=== PATIENT | male | born 1975 | race Caucasian/White ===

== ENCOUNTER 2020-10-14 08:07 | Outpatient (REF) | payer OTHER, SELFPAY ==
[2020-10-14 10:16] LABS: MANUAL DIFF FLAG NO
[2020-10-14 10:22] LABS: Basophils Percent Auto 0.5 % (0-2); Eosinophils Absolute Auto 0.1 X10*3/uL (0.0-0.4); Eosinophils Percent Auto 1.7 % (0-4); Hematocrit 41.9 % (42-52); Hemoglobin 14.5 g/dl (14.0-18.0); Imm Gran Abs Auto 0.04 X10*3/uL (0.00-0.03); Imm Gran Pct Auto 0.6 % (0.0-0.4); Mean Corpuscular HGB Conc 34.6 g/dl (31.0-36.0); Mean Corpuscular Volume 86.6 fL (80-98); Mean Platelet Volume 11.7 fL (9.4-12.4); Monocytes Absolute Auto 0.6 X10*3/uL (0.1-1.2); Neutrophils Absolute Auto 3.8 X10*3/uL (2.0-8.3); Neutrophils Percent Auto 58.2 % (45-73); Platelet Count 205 X10*3/uL (160-400); Red Blood Count 4.84 X10*6/uL (4.60-5.80); Red Cell Distribution Width 12.9 % (11.0-16.0); White Blood Count 6.6 X10*3/uL (4.8-10.8)
[2020-10-14 10:51] LABS: Alanine Aminotransferase 53 U/L (0-40); Albumin Level 4.6 g/dL (3.5-5.0); Alkaline Phosphatase 76 U/L (39-117); Anion Gap 19 (12-20); Aspartate Amino Transferase 29 U/L (5-37); Bilirubin Total 0.2 mg/dL (0.0-1.0); Blood Urea Nitrogen 17 mg/dL (9-16); Calcium 9.4 mg/dL (8.4-10.2); Carbon Dioxide 21 mmol/L (22-29); Chloride 104 mmol/L (96-108); Cholesterol 263 mg/dL; Estimated Glomerular Filt Rate > 60; Glucose Fasting 113 mg/dL (60-99); HDL Cholesterol 49 mg/dL; LDL Cholesterol Calculated 186 mg/dl; Potassium 4.5 mmol/L (3.3-5.1); Sodium 139 mmol/L (135-145); Total Protein 7.4 g/dL (6.5-8.0); Triglycerides 140 mg/dL
[2020-10-14 11:06] LABS: Thyroid Stimulating Hormone 0.65 uIU/mL (0.32-4.0)
== END 2020-10-14 08:08 | disposition home or self-care (01) ==
LOC: HO.10HDL 08:07
PROVIDERS: PCP Internal Medicine; Visit Provider Internal Medicine
DX: I10 Essential (primary) hypertension (principal); E78.00 Pure hypercholesterolemia, unspecified
CPT/HCPCS: 36415; 80053; 80061; 84443; 85025

== ENCOUNTER 2024-04-25 13:48 | Outpatient (AMB) | payer OTHER, SELFPAY ==
--- NOTE | 2024-04-25 14:36 | MHC.PC.OV ---
Vital Signs 04/25/24 14:39 Height 5 ft 5.75 in Weight 184 lb BMI 29.9 BP 160/78 H Blood Pressure Location Rt brachial Pulse 79 Pulse Source Pulse Oximeter Temp 97.2 F Pulse Oximetry (%) 98 Intake Visit Reasons: 3 month f/u Intake Note: no other issues othervthan not taking his meds like he should Allergies morphine Allergy (Unknown, Verified 04/25/24 14:37) from IV- shaking and veins turning black No Known Allergies Allergy (Unknown, Unverified 11/16/19 16:19) [facility] Medical History (Updated 04/25/24 @ 14:58 by Stuart Serrano MD) Hypercholesterolemia Essential hypertension Physical exam (Primary Care) Vital Signs: Last Vital Signs Temp 97.2 F 04/25/24 14:39 Pulse 79 04/25/24 14:39 BP 160/78 H 04/25/24 14:39 Pulse Ox 98 04/25/24 14:39 BMI result Body Mass Index 29.9 Coding Level of Care Code New Pt Level 4 (60690) Complex EM visit Add On G2211 Diagnoses Essential hypertension I10 Hypercholesterolemia E78.00 Assessment & Plan Assessment & Plan (1) Essential hypertension: Code(s): I10 - Essential (primary) hypertension Category: Medical Plan: BP in range. Continue medications at same dosage. BW has been ordered. Will call with results (2) Hypercholesterolemia: Code(s): E78.00 - Pure hypercholesterolemia, unspecified Category: Medical Plan: Continue statins at same dosage Plan History of Present Illness The patient is a 48-year-old male presenting with concerns about medication adherence and hip pain. 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 Despite missing some doses, he takes his hypertension medication most of the time, usually in the evening after work. His history of Hyperlipidemia is also acknowledged, and he follows a similar pattern of medication adherence. The patient experiences intermittent hip pain, which he mentioned to have flared up recently. He previously consulted a specialist in [place], who did not find any structural abnormalities. The pain can impede his ability to walk at times. Despite these issues, he denies any current health concerns and maintains a busy lifestyle, working up to 70 hours a week. 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 - Work Schedule: Approximately 60-70 hours per week. - Family: Is responsible for taking his children to school in the mornings. - Exercise: Has not been to the gym in two months but usually maintains a good exercise regimen. - Vision: Reports using reading glasses but no concerns with night driving. Review of Systems - Eyes: Reports needing reading glasses. - Musculoskeletal: Reports intermittent hip pain affecting ambulation. Physical Exam General: Appearance normal, both eyes and all related structures Nutritional Appearance: Well nourished Orientation/consciousness: Patient oriented x3 Limitations: Sometimes has trouble walking due to hip problems Head: Normal to inspection Neck: Normal visual inspection Chest: Normal palpation of entire chest wall Respiratory: Normal respiratory effort Neurology: Patient oriented x3 Results - Labs: Cologuard test was negative. Plan - Review current medication regimen for Essential Hypertension and Hyperlipidemia and encourage consistent adherence. - Patient advised to undergo fasting blood work to assess lipid levels. - Consider non-pharmacological interventions for hip pain, and encourage resumption of regular exercise as tolerated. - Discussed the importance of consistent medication intake, preferably in the morning if it could aid adherence. - No immediate need for a colonoscopy, given the recent negative Cologuard result. Patient was informed and verbally consented to the use of an ambient scribe for clinic note documentation during this visit. Discussion Notes During the visit, I discussed the importance of adhering to his current medication regimen for hypertension and hyperlipidemia, particularly emphasizing taking medications in the morning if this helps his routine. We spoke about the need for periodic monitoring of his blood pressure and lipid levels through fasting blood work, which he can complete at a facility within the [facility]. Given the negative Cologuard test, we agreed that immediate colonoscopy is not necessary. For his hip pain, I suggested returning to regular physical activity and exercises that do not exacerbate his pain. We agreed on a six-month follow-up to reassess these issues, and no refill was necessary this visit. Patient Instructions - Schedule and complete fasting blood work after midnight with no food intake. - Aim to resume a regular exercise routine within comfort limits. - Continue current medications and prioritize taking them in the morning. - Follow-up appointment planned for six months.
[2024-04-25 14:39] VITALS: BP 160/78; PULSE 79; TEMP 36.2; O2SAT 98; BMI 29.9
--- OUTSIDE RECORDS SUMMARY | 2024-04-25 17:09 | XMS_ITS ---
Author Organization Yan Zamora DO, [facility] Address [address], [place] [id number] Care Team Providers Care Acute Coordinator Name Role Phone Yan Zamora Primary Care Provider MEDICATIONS Medication SIG (Take, Route, Frequency, Duration) Notes Start Date End Date Status Rosuvastatin Calcium 20 MG 1 tablet Oral ly Once a day 12/01/2022 Active LORazepam 1 MG 1 tablet at bedtime as needed Orally Once a day for 30 days 08/24/2023 Active Albuterol Sulfate HFA 108 (90 Base) MCG/ACT 1 puff as needed Inhalation every 4 hrs for 30 days Active Tadalafil 20 MG 1 tablet as needed O rally Once a day for 30 days Active Metoprolol Succinate ER 50 MG 1 tablet Orally Once a day 05/14/2015 Active amLODIPine Besy-Benazepril HCl 10-40 MG 1 capsule Orally Once a day Active Encounters Encounter Location Date Provider Diagnosis Yan Zamora DO, FACP [address] [place] [phone] 02/09/2024 Yan Zamora PLAN OF TREATMENT No Information
--- OUTSIDE RECORDS SUMMARY | 2024-04-25 17:09 | XMS_ITS | Patient Health Record ---
Author Organization Yan Zamora DO, [facility] Address [address] [place], [place] [id number] Care Team Providers Care Boilermaker Ship Name Role Phone Yan Zamora Primary Care Provider [phone] ALLERGIES Allergen (clinical drug ingredient) Drug/Non Drug Allergy documented on EMR Reaction Allergy Type Onset Date Status morphine Morphine Sulfate agitation Drug Allergy Active RESULTS Component Value Reference Range Notes SRIDHAR Reviewed date:10/01/2023 11:34:05 AM Interpretation:Negative Performing Lab: Notes/Report: Negative Result REASON FOR REFERRAL No Information MEDICATIONS Medication SIG (Take, Route, Frequency, Duration) [...] Once a day for 30 days Active amLODIPine Besy-Benazepril HCl 10-40 MG 1 capsule Orally Once a day Active Metoprolol Succinate ER 50 MG 1 tablet Orally Once a day 05/14/2015 Active IMMUNIZATIONS Vaccine Route Administration Date Status Comme nts Influenza IM Intramuscular 03/20/2014 Administered Influenza Quad IM Intramuscular 05/01/2015 Administered COVID-19 Pfizer BioNTech Unknown 05/30/2020 Administere d COVID-19 Pfizer BioNTech Unknown 06/22/2020 Administere d SOCIAL HISTORY Tobacco Use: Social History Observation Description Date Details (start date - stop date) Never Smoker NA - NA Sex Assigned At : Social History Observation Description Sex Assigned At Unknown Tobacco Use/Smoking Question Answer Notes Patient is a nonsmoker Additional Findings: Tobacco Non-User Cu rrent non-smoker, currently using no form of tobacco Alcohol Screen Question Answer Notes Did you have a drink contain ing alcohol in the past year? Yes How often did you have a dri nk containing alcohol in the past year? 2 to 4 times a month (2 points) How many drinks did you have on a typical day when you were drinking in the past year? 3 or 4 drinks (1 point) How often did you have 6 or more drinks on one occasion in the past year? Never (0 point) Points 3 Interpretation Negative PROBLEMS Problem Type ICD Code Onset Dates Problem Status W/U Status Risk SNOMED Code Notes Problem Anxiety (F41.9) Active confirmed 330370 02 Problem Essential hypertensi on (I10) Active confirmed 95589463 Problem Erectile dysfunction , unspecified erectile dysfunction type (N52.9) Active confirmed 493050150 Problem Renal lithiasis (N20.0) Active confirmed 36893976 Problem Hypercholesterolemia (E78.00) Active confirmed 56250400 VITAL SIGNS Blood pressure diastolic 94 mm Hg 08/24/2023 Height 66.75 in 08/24/2023 Blood pressure systolic 162 mm Hg 08/24/2023 Weight 184 lbs 08/24/2023 BMI 29.03 kg/m2 08/24/2023 Encounters Encounter Location Date Provider Diagnosis Yan Zamora DO, [address] [id number] 05/04/2023 Yan Zamora DO, [address] [id number] 08/24/2023 Yan Zamora Encounter for genera l adult medical examination without abnormal findings Z00.00 ; Essential hypertension I10 ; Hypercholesterolemia E78.00 ; Anxiety F41.9 and Erectile dysfunction, unspecified erectile dysfunction type N52.9 Yan Zamora DO, [address] [id number] 11/23/2023 Yan Zamora DO, [address] [id number] 02/09/2024 Yan Zamora DO, [address] [id number] 06/28/2023 Yan Zamora ASSESSMENTS Encounter Date Diagnosis Assessment Notes Treatment Notes Treatment Clinical Notes 08/24/2023 Encounter for genera l adult medical examination without abnormal findings (ICD-10 - Z00.00) 08/24/2023 Essential hypertensi on (ICD-10 - I10) Low salt diet 08/24/2023 Hypercholesterolemia (ICD-10 - E78.00) Low cholesterol diet; written guidelines provided 08/24/2023 Anxiety (ICD-10 - F41.9) 08/24/2023 Erectile dysfunction , unspecified erectile dysfunction type (ICD-10 - N52.9) PLAN OF TREATMENT Pending Test Test Name Order Date CBC w DIFF 08/24/2023 Liver Panel 08/24/2023 Basic Metabolic Panel Fasting 08/24/2023 Lipid Panel 08/24/2023 PSA,Total (Free>4and<10) 08/24/2023 TSH reflex Free T4 08/24/2023 Insurance Providers Payer Name Payer Address Payer Phone Subscriber Number Group Number Insured Name Patient Relationship to Insured Coverage Start Date Coverage End Date [facility] [address] [facility] [place] [place] [id number] Ladnon Biggs Self - patient is the insured MEDICAL (GENERAL) HISTORY Medical History History ICD Code hypertension hypercholesterolemia appendicitis s/p appendectomy prostatitis Surgical History Surgery Date(Month/Year) appendectomy
--- OUTSIDE RECORDS SUMMARY | 2024-04-25 17:09 | XMS_ITS ---
Author Organization Yan Zamora DO, FACP Address [address] [place], [place] [id number] Care Team Providers Care Rx Specialist Name Role Phone Yan Zamora Primary Care Provider REASON FOR VISIT 3 month f/u Encounters Encounter Location Date Provider Diagnosis Yan Zamora DO, FACP [address] [place] [phone] 11/23/2023 Yan Zamora PLAN OF TREATMENT No Information
--- OUTSIDE RECORDS SUMMARY | 2024-04-25 17:09 | XMS_ITS ---
Author Organization Yan Zamora DO, [facility] Address [address] [place], [place] [phone] Care Team Providers Care Snap Attacher Name Role Phone Yan Zamora Primary Care Provider ALLERGIES Allergen (clinical drug ingredient) Drug/Non Drug Allergy documented on EMR Reaction Allergy Type Onset Date Status morphine Morphine Sulfate agitation Drug Allergy Active RESULTS Component Value Reference Range Notes SRIDHAR Reviewed date:10/01/2023 11:34:05 AM Interpretation:Negative Performing Lab: Notes/Report: Negative Result REASON FOR VISIT annual visit, Follow up hypertension, hypercholesterolemia MEDICATIONS Medication SIG (Take, Route, Frequency, Duration) Notes Start Date End Date Status Albuterol Sulfate HFA 108 (90 Base) MCG/ACT 1 puff as needed Inhalation every 4 hrs Active LORazepam 1 MG 1 tablet at bedtime as needed Orally Once a day for 30 days 08/24/2023 Active Tadalafil 20 MG 1 tablet as needed O rally Once a day Active amLODIPine Besy-Benazepril HCl 10-40 MG 1 capsule Orally Once a day Active Rosuvastatin Calcium 20 MG 1 tablet Oral ly Once a day 12/01/2022 Active Metoprolol Succinate ER 50 MG 1 tablet Orally Once a day 05/14/2015 Active SOCIAL HISTORY Tobacco Use: Social History Observation [...] Never (0 point) Points 3 Interpretation Negative VITAL SIGNS BMI 29.03 kg/m2 08/24/2023 Blood pressure systolic 162 mm Hg 08/24/19 24 Blood pressure diastolic 94 mm Hg 024 Height 66.75 in 08/24/2023 Weight 184 lbs 08/24/2023 Encounters Encounter Location Date Provider Diagnosis Yan Zamora DO, [address] [id number] 08/24/2023 Yan Zamora Encounter for genera l adult medical examination without abnormal findings Z00.00 ; Essential hypertension I10 ; Hypercholesterolemia E78.00 ; Anxiety F41.9 and Erectile dysfunction, unspecified erectile dysfunction type N52.9 ASSESSMENTS Encounter Date Diagnosis Assessment Notes Treatment [...] type (ICD-10 - N52.9) PLAN OF TREATMENT Medication Medication Name Sig Start Date Stop Date Notes Albuterol Sulfate HFA 108 (9 0 Base) MCG/ACT 1 puff as needed Inhalation every 4 hrs LORazepam 1 MG 1 tablet at bedtime as needed Orally Once a day for 30 days 08/24/2023 Tadalafil 20 MG 1 tablet as needed O rally Once a day amLODIPine Besy-Benazepril H Cl 10-40 MG 1 capsule Orally Once a day Rosuvastatin Calcium 20 MG 1 tablet Orally Once a day 04/2022 Metoprolol Succinate ER 50 MG 1 tablet Orally Once a day 0 05/14/2015 Treatment Notes Assessment Notes Essential hypertension Low salt diet Hypercholesterolemia Low cholesterol t; written guidelines provided Pending Test Test Name Order Date CBC w DIFF 08/24/2023 Liver Panel 08/24/2023 Basic Metabolic Panel Fasting 08/24/2023 Lipid Panel 08/24/2023 PSA,Total (Free>4and<10) 08/24/2023 TSH reflex Free T4 08/24/2023 Next Appt Details Follow Up: 3 Months, Reason: follow up visit,review lab work Progress Notes * Examination Category Sub-Category Detail Notes General Examination GENERAL APPEARANCE: well dev eloped, well nourished, in no acute distress HEAD: normocephalic, atrau matic EYES: sclera non-icteric NECK/THYROID: neck supple, full ra nge of motion, no cervical lymphadenopathy, thyroid normal, no carotid bruit HEART: regular rate and rhy thm, S1, S2 normal, no murmurs CHEST: normal LUNGS: clear to auscultatio n bilaterally ABDOMEN: soft, nontender, non distended, bowel sounds present, normal NEUROLOGIC: nonfocal, motor stre ngth normal upper and lower extremities, sensory exam intact SKIN: warm and dry EXTREMITIES: no edema PERIPHERAL PULSES: 2+ dorsalis pedis, 2 + posterior tibial MALE GENITOURINARY no hernia, no penile lesions or discharge, no testicular mass, testes descended bilaterally PSYCH: alert, oriented, cog nitive function intact, cooperative with exam, good eye contact, judgement and insight good History and Physical Notes * HPI (History of Present Illness) Category Sub-Category Detail Notes Depression Screening PHQ-9 Little inte rest or pleasure in doing things: Not at all Feeling down, depressed, or hopeless: No t at all Trouble falling or staying asleep, or sl eeping too much: Not at all Feeling tired or having little energy: N ot at all Poor appetite or overeating: Not at all Feeling bad about yourself o r that you are a failure, or have let yourself or your family down: Not at all Trouble concentrating on thi ngs, such as reading the newspaper or watching television: Not at all Moving or speaking so slowly that other people could have noticed; or the opposite, being so fidgety or restless that you have been moving around a lot more than usual: Not at all Thoughts that you would be b miko off or of hurting yourself in some way: Not at all Total Score: 0 Interpretation and Intervention Depression Scree ramon Findings: Negative Follow-Up for Depression: : Review of PH Q-9 found negative result; no follow-up needed Fall Risk Fall History Have you had two or more fal ls in the past year?: No Have you had any falls with injury in th e past year?: No Fall Risk Assessment:: No falls in the p ast year Communication Needs PCMH Communication Needs - [facility] shaffer Impairment?: No Vision Impairment?: Yes wears glasses fo r reading Cognitive Impairment?: No SDOH Questions SDOH Questions In the past year have you been worried about losing your housing?: No In the past year have you or any family members you live with been unable to get any of the following when it was really needed? Check all that apply:: None
== END 2024-04-25 14:50 | disposition home or self-care (01) ==
LOC: HO.HMCSH 13:48
PROVIDERS: PCP Internal Medicine; Visit Provider Internal Medicine
DX: I10 Essential (primary) hypertension (principal); E78.00 Pure hypercholesterolemia, unspecified

== ENCOUNTER → 2024-04-25 13:48 | Outpatient (BNVA) | payer OTHER, SELFPAY | PROVIDERS: PCP Internal Medicine; Visit Provider Internal Medicine ==

== ENCOUNTER 2024-11-07 13:30 | Outpatient (AMB) | payer OTHER, SELFPAY ==
--- NOTE | 2024-11-07 14:01 | MHC.PC.OV ---
Vital Signs 11/07/24 14:02 Height 5 ft 5.75 in Weight 180 lb BMI 29.3 BP 132/80 Respiration 14 Pulse 77 Pulse Source Pulse Oximeter Temp 98.6 F Temp Source Temporal Artery Scan Pulse Oximetry (%) 99 Oxygen Delivery Method Room Air Intake Visit Reasons: 6 month f/u - see comments Overhead Cleaner Required: No Accompanied by: Self / Same As Patient Allergies morphine Allergy (Unknown, Verified 11/07/24 14:02) from IV- shaking and veins turning black Tobacco use date assessed: 11/07/24 Dental Screening Dental Screen Date: 11/07/24 Did you have a dental visit in the last 12 months?: No Did you have a dental problem in the last 6 months where you did not have access to dental care?: No [facility] Medical History (Updated 11/07/24 @ 14:41 by Stuart eSrrano MD) Mid back pain Hypercholesterolemia Essential hypertension Family History (Updated 11/07/24 @ 14:10 by MARLON Thomson) Father Heart attack BP (high blood pressure) Mother Diabetes Social History (Updated 11/07/24 @ 14:10 by MARLON Thomson) Housing: House Alcohol intake: current Alcohol intake frequency: holidays/special occasions only Patient Tobacco Use Status: Never used Tobacco Tobacco use type: Cigar (once/twice yearly) service: No Current occupational status: employed Cognitive needs: No Hearing needs: No Vision needs: Yes (reading glasses) Questionnaire PHQ-9 Over the last 2 weeks, how often have you been bothered by any of the following problems? 1. Little interest or pleasure in doing things: not at all 2. Feeling down, depressed, or hopeless: not at all 3. Trouble falling or staying asleep, or sleeping too much: not at all 4. Feeling tired or having little energy: not at all 5. Poor appetite or overeating: not at all 6. Feeling bad about yourself - or that you are a failure or have let yourself or your family down: not at all 7. Trouble concentrating on things, such as reading the newspaper or watching television: not at all 8. Moving or speaking so slowly that other people could have noticed. Or the opposite - being so fidgety or restless that you have been moving around a lot more than usual: not at all 9. Thoughts that you would be better off or of hurting yourself in some way: not at all Total score: 0 Source: Developed by Drs. Yan Story, Nina Mohan, Ian Carlson and colleagues, with an educational anil from [employer]. Thrive Questionnaire Date Thrive assessed: 11/07/24 I am a: Patient What is your living situation today?: I have a steady place to live Within the past 12 months, did the food you bought not last and you didn't have the money to get more?: Never true Within the past 12 months, did you worry whether your food would run out before you got money to buy more?: Never true Do you have trouble paying for medicines?: No Do you have trouble getting transportation to medical appointments?: No Do you have trouble paying your heating and electricity bill?: No Do you have trouble taking care of your child, family member or friend?: No Do you have trouble with day-to-day activities such as bathing, preparing meals, shopping, managing finances, etc.?: No Are you currently unemployed and looking for a job?: No Are you interested in more education?: No Please select the resources that you would like help with: None THRIVE Score: 0 AUDIT C Alcohol Use Questionnaire (AUDIT-C) 1. How often do you have a drink containing alcohol?: Monthly or less 2. How many drinks containing alcohol do you have on a typical day when you are drinking?: 1 or 2 3. How often do you have six or more drinks on one occasion?: Never Total Score: 1 ROD-7 AMB Questionnaire ROD-7 Date ROD - 7 assessed: 11/07/24 Feeling nervous, anxious, or on edge: 3 = Nearly every day Not being able to stop or control worryin = Nearly every day Worrying too much about different things: 3 = Nearly every day Trouble relaxin = Nearly every day Being so restless that it is hard to sit still: 3 = Nearly every day Becoming easily annoyed or irritable: 0 = Not at all Feeling afraid as if something awful might happen: 0 = Not at all Total ROD-7 score (0-4 normal; 5-9 mild; 10-14 moderate; 15-21 severe): 15 Source: Developed by Drs. Yan Story, Nina Mohan, Ian Carlson and colleagues, with an educational anil from [employer]. Physical exam (Primary Care) Vital Signs: Last Vital Signs Temp 98.6 F 11/07/24 14:02 Pulse 77 11/07/24 14:02 Resp 14 11/07/24 14:02 BP 132/80 11/07/24 14:02 Pulse Ox 99 11/07/24 14:02 Oxygen Delivery Method Room Air 11/07/24 14:02 BMI result Body Mass Index 29.3 Tobacco/Smoking Status: Tobacco use Status Tobacco use date assessed 11/07/24 11/07/24 14:12 Patient Tobacco Use Status Never used Tobacco 11/07/24 14:12 Tobacco use type Cigar (once/twice yearly) 11/07/24 14:12 PHQ-9: PHQ-9 Score PHQ-9: Total score 0 11/07/24 14:12 Thrive Assessment: Date of Thrive Assessment Date Thrive assessed 11/07/24 11/07/24 14:12 Coding Level of Care Code Est Pt Level 4 (56090) Complex EM visit Add On G2211 Diagnoses Essential hypertension I10 Hypercholesterolemia E78.00 Mid back pain M54.9 Assessment & Plan Assessment & Plan (1) Essential hypertension: Code(s): I10 - Essential (primary) hypertension Category: Medical Plan: BP is in range. Compliance suggested. (2) Hypercholesterolemia: Code(s): E78.00 - Pure hypercholesterolemia, unspecified Category: Medical Plan: Compliance suggested. (3) Mid back pain: Code(s): M54.9 - Dorsalgia, unspecified Category: Medical Plan: History of Present Illness - The patient is a 49-year-old male presenting with persistent back pain. - The patient reports a history of back pain that began over 10 years ago following a fall from a second story, which initially showed no fractures on a CT scan but revealed some spots on the back. - Approximately a year ago, the patient experienced pain in the middle of the back after performing pull-ups at the gym, which resolved after a day. - Two months ago, the pain recurred with greater intensity, localized in the middle of the spine, and has persisted daily since then, exacerbated by twisting motions. - The patient has occasionally taken Aleve for pain relief, which has been somewhat effective. - The patient has a history of hypertension but admits to poor medication adherence, which he attributes to work-related stress and forgetfulness. - The patient completed a Cologuard test over a year ago, which was negative for colon cancer. - The patient also reports intermittent hip pain, which has been managed with stretching exercises. 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 - Exercise: The patient has ceased gym activities due to back pain but is considering resuming with a focus on stretching and regular exercise. Review of Systems - Musculoskeletal: Reports persistent back pain for two months, exacerbated by twisting motions. Denies issues with lying down or sitting. - Cardiovascular: Reports occasional palpitations, attributed to inconsistent medication adherence for hypertension. - Gastrointestinal: Denies any issues with bowel movements, reports negative Cologuard test for colon cancer. Physical Exam General: Cooperative and healthy appearing Nutritional Appearance: Well nourished Orientation/consciousness: Patient oriented x3 Limitations: No limitations Head: Normal to inspection General: Appearance normal, both eyes and all related structures Neck: Normal visual inspection Chest: Normal palpation of entire chest wall Respiratory: Breathe in. Breathe out. Breathe in. Breathe out. Breathe in. Breathe out. Breathe in. Breathe. ormal respiratory effort Neurology: Patient oriented x3 Results - Tests: Cologuard test completed over a year ago, negative for colon cancer. Plan 1. Back Pain - Recommend physical therapy focusing on stretching exercises. - Prescribe muscle relaxants and anti-inflammatory medications. - Advise use of heating pads for symptomatic relief. - Emphasize the importance of adhering to the treatment regimen to prevent chronicity. 2. Hypertension - Encourage consistent medication adherence to manage blood pressure. - Discuss the impact of work-related stress on blood pressure control. 3. Hip Pain - Continue with stretching exercises as previously advised. - Consider consultation with a chiropractor for further management. 4. Preventative Care: Colon Cancer Screening With Stool Test - No further action required at this time due to recent negative Cologuard test. Discussion Notes I discussed with the patient the importance of adhering to the prescribed treatment regimen for back pain, including physical therapy and medication. We also talked about the need for consistent medication adherence for hypertension management and the impact of stress on his condition. I advised him to continue with stretching exercises for hip pain and consider consulting a chiropractor. We reviewed the negative Cologuard test results, indicating no immediate need for further colon cancer screening. Patient Instructions - Follow the physical therapy regimen and take prescribed medications for back pain. - Use heating pads as needed for pain relief. - Take blood pressure medication consistently and monitor stress levels. - Continue stretching exercises for hip pain and consult a chiropractor if necessary. - No further colon cancer screening needed at this time due to negative Cologuard test. Orders: Orders Lipid Panel Today E78.00 - Pure hypercholesterolemia, unspecified, I10 - Essential (primary) hypertension Basic Metabolic Panel Today E78.00 - Pure hypercholesterolemia, unspecified, I10 - Essential (primary) hypertension Complete Blood Count no Diff Today E78.00 - Pure hypercholesterolemia, unspecified, I10 - Essential (primary) hypertension Thyroid Stimulating Hormone Today E78.00 - Pure hypercholesterolemia, unspecified, I10 - Essential (primary) hypertension UA and rflx microscopic Today E78.00 - Pure hypercholesterolemia, unspecified, I10 - Essential (primary) hypertension Erythrocyte Sedimentation Rate Today E78.00 - Pure hypercholesterolemia, unspecified, I10 - Essential (primary) hypertension Prostate Specific Antigen Scr Today E78.00 - Pure hypercholesterolemia, unspecified, I10 - Essential (primary) hypertension Medications: New cyclobenzaprine 10 mg PO BEDTIME 14 tabs 0RF meloxicam 15 mg PO DAILY 14 tabs 0RF
[2024-11-07 14:02] VITALS: BP 132/80; PULSE 77; RESP 14; TEMP 37; O2SAT 99; BMI 29.3
== END 2024-11-07 14:35 | disposition home or self-care (01) ==
LOC: HO.HMCSH 13:30
PROVIDERS: PCP Internal Medicine; Visit Provider Internal Medicine
DX: I10 Essential (primary) hypertension (principal); E78.00 Pure hypercholesterolemia, unspecified; M54.9 Dorsalgia, unspecified

== ENCOUNTER 2025-01-29 08:04 | Outpatient (REF) | payer OTHER, SELFPAY ==
--- NOTE | ~2025-01-29 | XR_ITS ---
EXAMINATION: XR ABDOMEN COMPLETE CLINICAL INDICATION: R14.0 - Abdominal distension (gaseous) COMPARISON: Correlated to CT dated December 21, 2017. TECHNIQUE: AP view in supine and upright position. of the abdomen. FINDINGS: Gas throughout nondilated intestine. No air-fluid levels. No gross free air beneath the diaphragm. Liver shadow projects below the rib cage. Vascular clips in the right lower abdomen and pelvis likely related to prior appendectomy. The level thoracolumbar spondylosis. XR/XR abdomen min 2V IMPRESSION: No intestinal obstruction pattern. Hepatomegaly, mild. Electronically signed by: Gasper Monreal MD 01/29/2025 01:44 PM EST
--- NOTE | ~2025-01-29 | XR_ITS ---
EXAMINATION: XR CHEST CLINICAL INFORMATION: R05.9 - Cough, unspecified COMPARISON: None available. TECHNIQUE: PA and lateral views FINDINGS: Pulmonary reticular pattern. Increased opacity in the inferior right elbow region. No gross consolidation pleural effusion or pneumothorax. Cardiomediastinal silhouette size is normal. Multilevel thoracic spondylosis. XR/XR chest 2V IMPRESSION: Concerning chronic interstitial lung disease with the questionable airspace disease versus artifact in the inferior right perihilar region. Electronically signed by: Gasper Monreal MD 01/29/2025 01:41 PM EST RP
[2025-01-29 08:42] LABS: Hematocrit 43.0 % (42.0-52.0); Hemoglobin 14.8 g/dl (14.0-18.0); Mean Corpuscular HGB Conc 34.4 g/dl (31.0-36.0); Mean Corpuscular Hemoglobin 30.1 pg (27.0-33.0); Mean Corpuscular Volume 87.4 fL (80.0-98.0); NRBC Abs Auto 0.000 X10*3/uL (0.0-0.012); NRBC Pct Auto 0.0 /100WBC (0.0-0.2); Platelet Count 211 X10*3/uL (160-400); Red Blood Count 4.92 X10*6/uL (4.60-5.80); White Blood Count 9.0 X10*3/uL (4.8-10.8)
[2025-01-29 09:06] LABS: Appearance Urine Clear; Glucose Urine UA Negative (Negative); PH 6.0 (5.0-9.0); Specific Gravity - Urine 1.010 (1.005-1.025)
[2025-01-29 09:21] LABS: Anion Gap 11 (12-20); Blood Urea Nitrogen 13 mg/dL (9-16); Calcium 9.3 mg/dL (8.4-10.2); Carbon Dioxide 27 mmol/L (22-29); Chloride 106 mmol/L (96-108); Cholesterol 218 mg/dL (<200); Estimated Glomerular Filt Rate > 60; HDL Cholesterol 49 mg/dL (>40); Potassium 4.7 mmol/L (3.3-5.1); Sodium 139 mmol/L (135-145); Triglycerides 125 mg/dL (<150)
[2025-01-29 09:31] LABS: Thyroid Stimulating Hormone 1.01 uIU/mL (0.32-4.0)
[2025-01-29 09:32] LABS: Erythrocyte Sedimentation Rate 5 MM/HR (0-15)
== END 2025-01-29 08:05 | disposition home or self-care (01) ==
LOC: HO.HMGCX 08:04
PROVIDERS: PCP Internal Medicine; Visit Provider Internal Medicine
DX: R14.0 Abdominal distension (gaseous) (principal); R05.9 Cough, unspecified; E78.00 Pure hypercholesterolemia, unspecified; I10 Essential (primary) hypertension; Z12.5 Encounter for screening for malignant neoplasm of prostate; R06.02 Shortness of breath; R07.9 Chest pain, unspecified
CPT/HCPCS: 36415; 71046; 74019; 80048; 80061; 81003; 84153; 84443; 85027; 85652; 93005

== ENCOUNTER 2025-01-29 10:44 | Outpatient (AMB) | payer OTHER, SELFPAY ==
[2025-01-29 11:02] VITALS: BP 138/81; PULSE 98; RESP 14; TEMP 36.5; O2SAT 96; BMI 30.2
--- NOTE | 2025-01-29 11:02 | A.OFFPC_ITS ---
Vital Signs 01/29/25 11:02 Height 5 ft 5.75 in Weight 186 lb BMI 30.2 BP 138/81 Blood Pressure Location Lt brachial Position Sitting Respiration 14 Pulse 98 Pulse Source Pulse Oximeter Temp 97.7 F Temp Source Temporal Artery Scan Pulse Oximetry (%) 96 Oxygen Delivery Method Room Air Intake Visit Reasons: Difficulty breathing Head Of Measurement & Insights Required: No Accompanied by: Self / Same As Patient Allergies morphine Allergy (Unknown, Verified 01/29/25 11:02) from IV- shaking and veins turning black Tobacco use date assessed: 11/07/24 Dental Screening Dental Screen Date: 11/07/24 HPI HPI Comments History of Present Illness Details History of Present Illness - The patient is a 49 year old individua l presenting with difficulty breathing and abdominal bloating. - The patient reports new onset of sympt oms for approximately one week, with a significant worsening over the past weekend. - Last night, the patient experienced an episode of waking at 3 a.m. with an inability to breathe while lying down, accompanied by coughing and palpitations. - The patient describes a sensation of b eing extremely bloated with pressure on the stomach, which has been present for over a week with a sudden onset. - The patient experiences dyspnea on exe rtion, occurring after walking 20-30 steps or when bending over to tie shoes. - Associated symptoms include vomiting a small amount secondary to severe coughing. - The patient denies a history of asthma but began using an inhaler post-COVID, which provided delayed relief over several hours during recent episodes. - A hot shower with steam provided some relief from the respiratory symptoms. - Bowel movements are normal and the pat ient reports a good appetite. - Relevant medical history includes a ba ck injury in June, with a return to gym exercise three to four weeks ago. - The patient is taking all prescribed m edications and had a negative COVID-19 test this morning. Social History - Employment: The patient has not missed work due to current symptoms. - Exercise: The patient resumed going to the gym 3-4 weeks ago after recovering from a back injury. - Home Environment: No other household m embers are sick. Results - Labs: Blood work was drawn today; prel iminary results show a normal white blood cell count, with some tests still pending. - Urinalysis: Results are normal. - Infectious Disease: A COVID-19 test pe rformed this morning was negative. [facility] Medical History Mid back pain Hypercholesterolemia Essential hypertension Family History Father Heart attack BP (high blood pressure) Mother Diabetes Social History Housing: House Alcohol intake: current Alcohol intake frequency: holidays/special occasions only Patient Tobacco Use Status: Never used Tobacco Tobacco use type: Cigar (once/twice yearly) service: No Current occupational status: employed Cognitive needs: No Hearing needs: No Vision needs: Yes (reading glasses) Questionnaire PHQ-9 Over the last 2 weeks, how often have you been bothered by any of the following problems? 1. Little interest or pleasure in doing things: not at all 2. Feeling down, depressed, or hopeless: not at all 3. Trouble falling or staying asleep, or sleeping too much: not at all 4. Feeling tired or having little energy: not at all 5. Poor appetite or overeating: not at all 6. Feeling bad about yourself - or that you are a failure or have let yourself or your family down: not at all 7. Trouble concentrating on things, such as reading the newspaper or watching television: not at all 8. Moving or speaking so slowly that other people could have noticed. Or the opposite - being so fidgety or restless that you have been moving around a lot more than usual: not at all 9. Thoughts that you would be better off or of hurting yourself in some way: not at all Total score: 0 Source: Developed by Drs. Yan Story, Nina Mohan, Ian Carlson and colleagues, with an educational anil from [employer]. Thrive Questionnaire Date Thrive assessed: 11/07/24 I am a: Patient What is your living situation today?: I have a steady place to live Within the past 12 months, did the food you bought not last and you didn't have the money to get more?: Never true Within the past 12 months, did you worry whether your food would run out before you got money to buy more?: Never true Do you have trouble paying for medicines?: No Do you have trouble getting transportation to medical appointments?: No Do you have trouble paying your heating and electricity bill?: No Do you have trouble taking care of your child, family member or friend?: No Do you have trouble with day-to-day activities such as bathing, preparing meals, shopping, managing finances, etc.?: No Are you currently unemployed and looking for a job?: No Are you interested in more education?: No Please select the resources that you would like help with: None THRIVE Score: 0 AUDIT C Alcohol Use Questionnaire (AUDIT-C) 1. How often do you have a drink containing alcohol?: Monthly or less 2. How many drinks containing alcohol do you have on a typical day when you are drinking?: 1 or 2 3. How often do you have six or more drinks on one occasion?: Never Total Score: 1 ROD-7 AMB Questionnaire ROD-7 Date ROD - 7 assessed: 11/07/24 Feeling nervous, anxious, or on edge: 3 = Nearly every day Not being able to stop or control worryin = Nearly every day Worrying too much about different things: 3 = Nearly every day Trouble relaxin = Nearly every day Being so restless that it is hard to sit still: 3 = Nearly every day Becoming easily annoyed or irritable: 0 = Not at all Feeling afraid as if something awful might happen: 0 = Not at all Total ROD-7 score (0-4 normal; 5-9 mild; 10-14 moderate; 15-21 severe): 15 Source: Developed by Drs. Yan Story, Nina Mohan, Ian Carlson and colleagues, with an educational anil from [employer]. Review of Systems Narrative Review of Systems - Constitutional: Reports feeling sore on the inside. - Respiratory: Reports dyspnea for one week, which is exertional and positional (worsens when lying down). - Cardiovascular: Reports palpitations. - Gastrointestinal: Reports severe abdominal bloating with a sensation of pressure for over a week. - Head, Eyes, Ears, Nose, Throat: Reports cough, severe enough to induce emesis. Physical exam (Primary Care) Vital Signs: Last Vital Signs Temp 97.7 F 01/29/25 11:02 Pulse 98 01/29/25 11:02 Resp 14 01/29/25 11:02 BP 138/81 01/29/25 11:02 Pulse Ox 96 01/29/25 11:02 Oxygen Delivery Method Room Air 01/29/25 11:02 BMI result Body Mass Index 30.2 Tobacco/Smoking Status: Tobacco use Status Tobacco use date assessed 11/07/24 01/29/25 11:03 Patient Tobacco Use Status Never used Tobacco 01/29/25 11:03 Tobacco use type Cigar (once/twice yearly) 01/29/25 11:03 PHQ-9: PHQ-9 Score PHQ-9: Total score 0 01/29/25 11:24 Thrive Assessment: Date of Thrive Assessment Date Thrive assessed 11/07/24 01/29/25 11:03 Narrative Physical Exam General: Appearance normal, both eyes and all related structures Nutritional Appearance: Well nourished Orientation/consciousness: Patient oriented x3 Limitations: Patient experiences shortness of breath after 20-30 steps Head: Normal to inspection Neck: Normal visual inspection Chest: Normal palpation of entire chest wall Respiratory: Difficulty breathing, especially when lying down; patient reports coughing and shortness of breath Neurology: Patient oriented x3 Office Procedures EKG Details: NSR 72081-[id number], Complete Coding Level of Care Code Complex visit Add On G2211 Diagnoses Shortness of Breath R06.02 CPT Codes EKG - CPT: 51730-[id number], Complete ([id number]) Assessment & Plan Assessment & Plan (1) Shortness of Breath: Code(s): R06.02 - Shortness of breath Plan Plan - An EKG will be performed in the office to assess for cardiac abnormalities. - An abdominal X-ray will be ordered to investigate the cause of abdominal bloating. - No new medications will be started at this time, pending diagnostic results. - The patient is advised to stay home today. Discussion Notes I discussed with the patient that the new onset of difficulty breathing and abdominal bloating requires investigation. I explained that we will perform an EKG in the office and order an abdominal X-ray. I informed the patient that I am holding off on prescribing any new medications until we have these results. I advised the patient to be at home for the rest of the day. Patient Instructions - Please have the EKG (heart tracing) done here in the office today. - I am ordering an X-ray of your abdomen; please get this done. - Do not start any new medications until we review your test results. - It is recommended you stay home today. Orders: Orders XR chest 2V Today R05.9 - Cough, unspecified, R14.0 - Abdominal distension (gaseous) XR abdomen 3V Today R14.0 - Abdominal distension (gaseous) AMB EKG-In Office Today R06.02 - Shortness of breath, R07.9 - Chest pain, unspecified
== END 2025-01-29 12:07 | disposition home or self-care (01) ==
PROVIDERS: PCP Internal Medicine; Visit Provider Internal Medicine
DX: R06.02 Shortness of breath (principal)

== ENCOUNTER → 2025-01-29 13:13 | Outpatient (BNV) | payer OTHER, SELFPAY | PROVIDERS: PCP Internal Medicine; Visit Provider Radiology Diagnostic Radiology | DX: R16.0 Hepatomegaly, not elsewhere classified (principal); R05.9 Cough, unspecified | CPT/HCPCS: 71046; 74019 ==

== ENCOUNTER 2025-02-13 13:26 | Outpatient (AMB) | payer OTHER, SELFPAY ==
--- NOTE | 2025-02-13 13:30 | A.OFFPC_ITS ---
Vital Signs 02/13/25 13:34 Height 5 ft 5.7 in Weight 182 lb BMI 29.6 BP 146/89 H Blood Pressure Location Lt brachial Position Sitting Respiration 17 Pulse 80 Pulse Source Pulse Oximeter Temp 97.2 F Temp Source Temporal Artery Scan Pulse Oximetry (%) 97 Oxygen Delivery Method Room Air Intake Visit Reasons: Reviewing results - see comments Patient Support Associate Required: No Accompanied by: Spouse Allergies morphine Allergy (Unknown, Verified 02/13/25 13:33) from IV- shaking and veins turning black Tobacco use date assessed: 11/07/24 Dental Screening Dental Screen Date: 11/07/24 HPI HPI Comments History of Present Illness Details History of Present Illness - The patient is a 49 year old male pres enting for follow-up for abdominal bloating. - The patient was previously seen on Jan for abdominal bloating, which prompted an EKG and abdominal x-ray. - The bloating lasted a few days after t he last visit and he has only felt it once since then. - Associated symptoms at the time includ ed shortness of breath and a sensation of heaviness, which have now resolved. - Prior workup included blood work which was normal for glucose and showed no anemia, and an abdominal x-ray which showed a significant amount of gas but no obstruction. - His cholesterol was noted to be elevat ed on prior blood work. - He is taking a combination medication, amlodipine, for hypertension. Social History Results - Labs: Previous blood work showed no an emia and a normal glucose level. Cholesterol was elevated. Liver function tests were not performed. - Tests and Diagnostics: An abdominal x- ray performed on January 29 showed a significant amount of intestinal gas without evidence of obstruction. [facility] Medical History Mid back pain Hypercholesterolemia Essential hypertension Family History Father Heart attack BP (high blood pressure) Mother Diabetes Social History Housing: House Alcohol intake: current Alcohol intake frequency: holidays/special occasions only Patient Tobacco Use Status: Never used Tobacco Tobacco use type: Cigar (once/twice yearly) service: No Current occupational status: employed Cognitive needs: No Hearing needs: No Vision needs: Yes (reading glasses) Questionnaire PHQ-9 Over the last 2 weeks, how often have you been bothered by any of the following problems? 1. Little interest or pleasure in doing things: not at all 2. Feeling down, depressed, or hopeless: not at all 3. Trouble falling or staying asleep, or sleeping too much: not at all 4. Feeling tired or having little energy: not at all 5. Poor appetite or overeating: not at all 6. Feeling bad about yourself - or that you are a failure or have let yourself or your family down: not at all 7. Trouble concentrating on things, such as reading the newspaper or watching television: not at all 8. Moving or speaking so slowly that other people could have noticed. Or the opposite - being so fidgety or restless that you have been moving around a lot more than usual: not at all 9. Thoughts that you would be better off or of hurting yourself in some way: not at all Total score: 0 Source: Developed by Drs. Yan Story, Nina Mohan, Ian Carlson and colleagues, with an educational anil from [employer]. Thrive Questionnaire Date Thrive assessed: 11/07/24 I am a: Patient What is your living situation today?: I have a steady place to live Within the past 12 months, did the food you bought not last and you didn't have the money to get more?: Never true Within the past 12 months, did you worry whether your food would run out before you got money to buy more?: Never true Do you have trouble paying for medicines?: No Do you have trouble getting transportation to medical appointments?: No Do you have trouble paying your heating and electricity bill?: No Do you have trouble taking care of your child, family member or friend?: No Do you have trouble with day-to-day activities such as bathing, preparing meals, shopping, managing finances, etc.?: No Are you currently unemployed and looking for a job?: No Are you interested in more education?: No Please select the resources that you would like help with: None THRIVE Score: 0 AUDIT C Alcohol Use Questionnaire (AUDIT-C) 1. How often do you have a drink containing alcohol?: Monthly or less 2. How many drinks containing alcohol do you have on a typical day when you are drinking?: 1 or 2 3. How often do you have six or more drinks on one occasion?: Never Total Score: 1 ROD-7 AMB Questionnaire ROD-7 Date ROD - 7 assessed: 11/07/24 Feeling nervous, anxious, or on edge: 3 = Nearly every day Not being able to stop or control worryin = Nearly every day Worrying too much about different things: 3 = Nearly every day Trouble relaxin = Nearly every day Being so restless that it is hard to sit still: 3 = Nearly every day Becoming easily annoyed or irritable: 0 = Not at all Feeling afraid as if something awful might happen: 0 = Not at all Total ROD-7 score (0-4 normal; 5-9 mild; 10-14 moderate; 15-21 severe): 15 Source: Developed by Drs. Yan Story, Nina Mohan, Ian Carlson and colleagues, with an educational anil from [employer]. Review of Systems Narrative Review of Systems - General: Denies heaviness. - Respiratory: Denies dyspnea. - Gastrointestinal: Reports resolved abdominal bloating. Reports passing gas. Denies vomiting. Physical exam (Primary Care) Vital Signs: Last Vital Signs Temp 97.2 F 02/13/25 13:34 Pulse 80 02/13/25 13:34 Resp 17 02/13/25 13:34 BP 146/89 H 02/13/25 13:34 Pulse Ox 97 02/13/25 13:34 Oxygen Delivery Method Room Air 02/13/25 13:34 BMI result Body Mass Index 29.6 Tobacco/Smoking Status: Tobacco use Status Tobacco use date assessed 11/07/24 02/13/25 13:38 Patient Tobacco Use Status Never used Tobacco 02/13/25 13:38 Tobacco use type Cigar (once/twice yearly) 02/13/25 13:38 PHQ-9: PHQ-9 Score PHQ-9: Total score 0 02/13/25 13:38 Thrive Assessment: Date of Thrive Assessment Date Thrive assessed 11/07/24 02/13/25 13:38 Narrative Physical Exam General: Appearance normal, both eyes and all related structures Nutritional Appearance: Well nourished Orientation/consciousness: Patient oriented x3 Limitations: No limitations Head: Normal to inspection Neck: Normal visual inspection Chest: Normal palpation of entire chest wall Respiratory: Normal respiratory effort, patient reports breathing fine Neurology: Patient oriented x3 Coding Level of Care Code Est Pt Level 4 (35319) Add On Problem Visit Only Diagnoses Essential hypertension I10 Assessment & Plan Assessment & Plan (1) Essential hypertension: Code(s): I10 - Essential (primary) hypertension Category: Medical Plan Plan - The patient's symptoms of bloating have resolved and were likely due to intestinal gas, as seen on his prior x-ray. - An order will be placed for a liver function test to complete the workup, as this was not done previously. - A 90-day supply of his combination amlodipine medication with one refill will be sent to his pharmacy. - The patient will follow up in six months. Discussion Notes I discussed with the patient that his symptoms of bloating have subsided and were likely related to gas, as evidenced by his prior abdominal x-ray. I explained that his previous blood work was normal, but a liver function test was not completed, so I am ordering one now. I informed him that he does not need to be fasting for the test. I will call him if the results are abnormal; otherwise, I will see him for a follow-up in six months. I also confirmed sending a refill for his blood pressure medication. Patient Instructions - You will need to get blood work done to check your liver function. You do not need to be fasting for this test. - A refill for your amlodipine medication has been sent to your pharmacy. - Your symptoms were likely due to gas and have since resolved. - We will call you if your liver test results are abnormal. - Please schedule a follow-up appointment in six months. Orders: Orders Liver Panel Today I10 - Essential (primary) hypertension Medications: Refilled amlodipine-benazepril 10-40 mg 1 cap PO DAILY 90 caps 1RF
[2025-02-13 13:34] VITALS: BP 146/89; PULSE 80; RESP 17; TEMP 36.2; O2SAT 97; BMI 29.6
== END 2025-02-13 13:48 | disposition home or self-care (01) ==
LOC: HO.HMCSH 13:26
PROVIDERS: PCP Internal Medicine; Visit Provider Internal Medicine
DX: I10 Essential (primary) hypertension (principal)